=== PATIENT | female | born 1950 | race African-American/Black ===

== ENCOUNTER 2021-10-30 16:46 | Emergency (ER) | payer MEDICARE, OTHER ==
--- NOTE | 2021-10-31 00:25 | XRay Report ---
CHEST 2 VIEWS INDICATION / CLINICAL INFORMATION: Chest Pain. COMPARISON: None available. FINDINGS: SUPPORT DEVICES: None. HEART / MEDIASTINUM: No significant abnormality. LUNGS / PLEURA: No significant pulmonary or pleural abnormality. No pneumothorax. ADDITIONAL FINDINGS: No significant additional findings. IMPRESSION: 1. No acute findings. Signer Name: Clarence Mata MD Signed: 10/31/2021 12:21 AM Workstation Name: [id number]
[2021-10-31 00:36] LABS: Basophils # (Auto) 0.1 K/mm3 (0.0-0.1); Eosinophils # (Auto) 0.2 K/mm3 (0.0-0.4); Eosinophils % (Auto) 2.1 % (0.0-4.3); Hematocrit 42.9 % (30.3-42.9); Lymphocytes # (Auto) 3.3 K/mm3 (1.2-5.4); Lymphocytes % (Auto) 43.1 % (13.4-35.0); Mean Corpuscular HGB Conc 33 % (30-34); Mean Corpuscular Volume 91 fl (79-97); Monocytes # (Auto) 0.4 K/mm3 (0.0-0.8); Monocytes % (Auto) 5.8 % (0.0-7.3); Platelet Count 294 K/mm3 (140-440); Red Blood Count 4.71 M/mm3 (3.65-5.03); Red Cell Distribution Width 13.9 % (13.2-15.2)
[2021-10-31 00:51] LABS: BUN/Creatinine Ratio 11; Blood Urea Nitrogen 11 mg/dL (7-17); Calcium 9.7 mg/dL (8.4-10.2); Hemolysis Index 4
--- NOTE | 2021-10-31 07:53 | Emergency Department Report ---
ED Chest Pain HPI - General Chief Complaint: Chest Pain Stated Complaint: CHEST PAIN Time Seen by Provider: 10/31/21 06:19 Source: patient Mode of arrival: Ambulatory Limitations: No Limitations - History of Present Illness Initial Comments: 71-year-old female who presents with intermittent chest pain that has been going on for about a week progressively getting worse. Patient has history of chronic left shoulder pain with recent cortisone injection to the joint. Patient described the chest pain as pressure. She did have echocardiogram done in 2016 that showed EF of 60%. Patient has been scheduled for another echocardiogram on November 09. Patient denies any cough, shortness of breath, or palpitation. No other modifying or associated factors reported. - Related Data Allergies Allergy/AdvReac Type Severity Reaction Status Date / Time No Known Allergies Allergy Unverified 10/30/21 23:45 Heart Score - HEART Score History: Slightly suspicious EKG: Non-specific Age: > 65 Risk factors: No known risk factors Troponin: < normal limit HEART Score: 3 - EKG Read Time Time EKG Completed: 23:50 EKG Read Time: 23:55 - Critical Actions Critical Actions: 0-3 pts:0.9-1.7%risk of adverse cardiac event.Candidate for discharge ED Review of Systems ROS: Stated complaint: CHEST PAIN Other details as noted in HPI Comment: All other systems reviewed and negative Cardiovascular: chest pain Musculoskeletal: arthralgia (Left shoulder) ED Physical Exam - General Limitations: No Limitations General appearance: alert, in no apparent distress - Head Head exam: Present: normal inspection - Eye Eye exam: Present: normal appearance Pupils: Present: normal accommodation - ENT ENT exam: Present: normal exam, normal orophraynx, mucous membranes moist - Neck Neck exam: Present: normal inspection. Absent: tenderness - Respiratory Respiratory exam: Present: normal lung sounds bilaterally. Absent: respiratory distress, accessory muscle use - Cardiovascular Cardiovascular Exam: Present: regular rate, normal rhythm, normal heart sounds - GI/Abdominal GI/Abdominal exam: Present: soft, normal bowel sounds. Absent: distended, tenderness - Extremities Exam Extremities exam: Present: normal inspection, full ROM, normal capillary refill. Absent: tenderness, pedal edema, joint swelling - Back Exam Back exam: Absent: tenderness - Neurological Exam Neurological exam: Present: alert, oriented X3 - Psychiatric Psychiatric exam: Present: normal affect, normal mood - Skin Skin exam: Present: warm, normal color ED Course Vital Signs 10/30/21 10/31/21 10/31/21 23:40 05:43 05:45 Temperature 98.4 F 97.8 F Pulse Rate 72 72 72 Respiratory 18 14 16 Rate Blood Pressure Blood Pressure 175/93 183/97 [Right] O2 Sat by Pulse 98 99 98 Oximetry 10/31/21 10/31/21 10/31/21 05:46 06:00 06:15 Temperature Pulse Rate 63 60 62 Respiratory 15 11 L 13 Rate Blood Pressure 183/97 201/90 186/84 Blood Pressure [Right] O2 Sat by Pulse 100 98 98 Oximetry 10/31/21 10/31/21 10/31/21 06:30 06:46 07:00 Temperature Pulse Rate 68 62 61 Respiratory 15 11 L 11 L Rate Blood Pressure 147/98 153/89 137/84 Blood Pressure [Right] O2 Sat by Pulse 98 99 98 Oximetry 10/31/21 10/31/21 10/31/21 07:16 07:30 07:46 Temperature Pulse Rate 63 64 58 L Respiratory 12 12 11 L Rate Blood Pressure 136/90 145/90 147/88 Blood Pressure [Right] O2 Sat by Pulse 98 99 98 Oximetry 10/31/21 10/31/21 08:00 08:16 Temperature Pulse Rate 56 L 58 L Respiratory 10 L 11 L Rate Blood Pressure 147/86 129/86 Blood Pressure [Right] O2 Sat by Pulse 98 99 Oximetry DONNIE score - Donnie Score Age > 65: (1) Yes Aspirin use within the Past 7 Days: (0) No 3 or more CAD Risk Factors: (0) No 2 or more Angina events in past 24 hrs: (0) No Known CAD with more than 50% Stenosis: (0) No Elevated Cardiac Markers: (0) No ST Deviation Greater than 0.5mm: (0) No DONNIE Score: 1 ED Medical Decision Making - Lab Data Result diagrams: 10/31/21 00:11 10/31/21 00:11 - EKG Data -: EKG Interpreted by Me EKG shows normal: sinus rhythm - EKG Data Interpretation: nonspecific ST-T wave [place] - Medical Decision Making Here with chest pain/pressure--this is likely a refer pain from her shoulder/joint pain but differential could be but not limited to myocardial infarction, pulmonary embolism, costochondritis, anxiety, gastritis, GERD, pancreatitis, and or pyelonephritis--in order to rule out the above-- so will go ahead and order routine cardiopulmonary work-up that include troponin, EKG, chest x-ray, BNP, CKMB, and CBC, CMP and urinalysis for any correctable infectious process or electrolyte abnormality as a cause. Initial EKG did not show any efra ST elevation or depression--we will go ahead and follow-up on the above labs including the cardiac enzyme Critical care attestation.: If time is entered above; I have spent that time in minutes in the direct care of this critically ill patient, excluding procedure time. ED Disposition Clinical Impression: Chest pain Qualifiers: Chest pain type: unspecified Qualified Code(s): R07.9 - Chest pain, unspecified Left shoulder pain Qualifiers: Chronicity: chronic Qualified Code(s): M25.512 - Pain in left shoulder Disposition: HOME / SELF CARE / HOMELESS Is pt being admited?: No Does the pt Need Aspirin: No Condition: Stable Instructions: Nonspecific Chest Pain, Adult, [id number], Chest Wall Pain, [id number] Additional Instructions: : Follow-up with your cardiology for your echocardiogram scheduled for November 09 for further evaluation Please do not hesitate to call or return to emergency room if your symptoms worsen Ensure adequate rest Referrals: SAMREEN MIGUEL MD [Referring] - 3-5 Days Time of Disposition: 09:55
[2021-10-31 11:02] VITALS: BP 121/82
--- NOTE | 2021-11-01 12:21 | Electrocardiograph Report ---
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
== END 2021-10-31 11:01 | disposition home or self-care (01) ==
LOC: ED 16:46
DX: R07.9 Chest pain, unspecified (principal); M25.512 Pain in left shoulder
CPT/HCPCS: 36415; 71046; 80048; 84484; 85025; 93005; 99284